=== PATIENT | male | born 1975 | race Caucasian/White ===

== ENCOUNTER 2016-12-01 09:10 | Emergency (ER) | payer OTHER ==
[~2016-12-01] VITALS: Wt 71.0 kg
[2016-12-01] MEDS ORDERED: LABETALOL HCL 20MG INJ IV ONE ×2 (10:00→11:30)
[2016-12-01 10:11] LABS: ADD SCAN DIFF NO
[2016-12-01 10:19] LABS: BASOPHIL # 0.1 10^3/ul (0.0-0.1); BASOPHILS % 0.5 % (0.0-2.0); EOSINOPHILS # 0.3 10^3/ul (0.0-0.5); EOSINOPHILS % 2.7 % (0.0-7.0); HEMATOCRIT 46.3 % (42.0-52.0); HEMOGLOBIN 15.7 g/dl (14.0-18.0); LYMPHOCYTES # 3.9 10^3/ul (0.8-2.9); LYMPHOCYTES % 37.1 % (15.0-51.0); MEAN CORPUSCULAR HEMOGLOBIN 27.6 pg (29.0-33.0); MEAN CORPUSCULAR HGB CONC 33.9 g/dl (32.0-37.0); MEAN CORPUSCULAR VOLUME 81.4 fl (82.0-101.0); MEAN PLATELET VOLUME 11.9 fl (7.4-10.4); MONOCYTE # 0.6 10^3/ul (0.3-0.9); MONOCYTES % 5.5 % (0.0-11.0); NEUTROPHIL # 5.7 10^3/ul (1.6-7.5); NEUTROPHILS % 53.8 % (39.0-77.0); PLATELET COUNT 328 10^3/UL (140-415); RED BLOOD COUNT 5.69 10^6/ul (4.70-6.10); RED CELL DISTRIBUTION WIDTH 13.4 % (11.5-14.5); WHITE BLOOD COUNT 10.6 10^3/ul (4.8-10.8)
[2016-12-01 10:22] VITALS: PULSE 72; RESP 24
[2016-12-01 10:25] LABS: CHLORIDE 105 mmol/L (97-110)
--- NOTE | 2016-12-01 10:25 | RADRPT ---
PROCEDURE: CT Brain without contrast. CLINICAL INDICATION: Visual disturbance, headache TECHNIQUE: Routine CT scan of the brain was performed on a high resolution multi detector scanner without intravenous contrast. One or more of the following dose reduction techniques were used: Auto mated exposure control; Adjustment of the mA and/or kV according to patient size; Use of iterative r econstruction technique. CTDI = 43 mGy. DLP = 630 mGy-cm. COMPARISON: No prior relevant examinations are available for comparison. FINDINGS: Hemorrhage: No evidence of intracranial hemorrhage. Acute ischemic changes: No evidence of acute ischemic changes. Mass effect/Midline shift: None. Parenchymal volume: Within normal limits for age. Ventricular system: Concordant with parenchymal volume. Chronic changes: Parenchymal attenuation is within normal limits. Extracranial soft tissues: 7 mm of soft tissue swelling noted in the left parietal region Calvarium: No fractures. Paranasal sinuses: Visualized paranasal sinuses are clear. Mastoid air cells: Visualized mastoid air cells are clear. IMPRESSION: No acute intracranial abnormalities. Normal appearance the brain parenchyma. MRI of the brain may be useful for further evaluation. 7 mm area of soft tissue swelling left parietal region without underlying fracture may be post-traum atic. RPTAT: AADD .Ernesto Dickson MD, MD Date Time Electronically viewed and signed by .Ernesto Dickson MD, on 12/01/2016 10:24 .B/
[2016-12-01 10:26] LABS: POTASSIUM 3.1 mmol/L (3.5-5.1); SODIUM 140 mmol/L (135-144)
[2016-12-01 10:28] LABS: CREATININE 1.58 mg/dl (0.61-1.24)
[2016-12-01 10:29] LABS: ANION GAP 11 (8-16); BLOOD UREA NITROGEN 26 mg/dl (7-20); CALCIUM 8.7 mg/dl (8.4-10.2); CARBON DIOXIDE 27 mmol/L (21-31); GLUCOSE 251 mg/dl (70-220)
[2016-12-01] MEDS ORDERED: POTASSIUM CHLORIDE (SR) 20 MEQ TAB PO STA (10:38)
[2016-12-01 10:44] LABS: TROPONIN-I < 0.012 ng/ml (0.00-0.12)
[2016-12-01 11:06] LABS: ADD UMIC YES; URINE BILIRUBIN (Dip) NEGATIVE (NEGATIVE); URINE BLOOD (Dip) 3+ (NEGATIVE); URINE COLOR LT. YELLOW (YELLOW); URINE KETONES (Dip) NEGATIVE (NEGATIVE); URINE LEUKOCYTE ESTERASE (Dip) NEGATIVE (NEGATIVE); URINE NITRITE (Dip) NEGATIVE (NEGATIVE); URINE TOTAL PROTEIN (Dip) 4+ (NEGATIVE); URINE UROBILINOGEN (Dip) 0.2 E.U./dL (0.1-1.0)
[2016-12-01] MEDS ORDERED: HYD25 PO (11:13)
--- NOTE | 2016-12-01 11:16 | ERD ---
ER Documentation Chief Complaint Date/Time DATE: 12/01/16 TIME: 11:16 Chief Complaint BLURRY VISION NOT TAKING MEDS HPI Patient is a 41-year-old male with diabetes and hypertension who presents with blurry vision. The patient had blurry vision which started last night. It comes and goes. The left was worse than the right. He has had a headache for the past 2 days as well. He had 2 weeks of bilateral lower extremity swelling. The patient says "otherwise I feel good". The patient has no primary doctor currently. He is supposed to be taking blood pressure medicines but does not take any at this time. ROS All systems reviewed and are negative except as per history of present illness. Medications Home Meds Active Scripts Hydrochlorothiazide* (Hydrochlorothiazide*) 25 Mg Tab, 25 MG PO DAILY, #30 TAB Prov:ALLYSON SHEA MD 12/01/16 Allergies Allergies: Coded Allergies: No Known Allergy (Unverified , 12/01/16) PMhx/Soc History of Surgery: Yes Hx Cardiac Disorders: Yes (HTN) Hx Psychiatric Problems: No Hx Miscellaneous Medical Probl: Yes (DM) Hx Alcohol Use: Yes (beer onace a week) Hx Substance Use: No Hx Tobacco Use: No Smoking Status: Never smoker FmHx Family History: diabetes Physical Exam Vitals Vital Signs Date Time Temp Pulse Resp B/P Pulse Ox O2 Delivery O2 Flow Rate FiO2 12/01/16 11:48 190/104 12/01/16 10:22 72 24 242/125 98 Room Air 12/01/16 10:00 73 16 210/114 94 Room Air 12/01/16 09:13 98.0 71 18 243/136 99 Physical Exam Const: No acute distress Head: Atraumatic Eyes: Normal Conjunctiva ENT: Normal External Ears, Nose and Mouth. Neck: Full range of motion..~ No meningismus. Resp: Clear to auscultation bilaterally Cardio: Regular rate and rhythm, no murmurs Abd: Soft, non tender, non distended. 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, no slurred speech Psych: Normal Mood and Affect Result Diagram: 12/01/16 1000 12/01/16 1000 Results 24 hrs Laboratory Tests Test 12/01/16 09:46 12/01/16 10:00 12/01/16 10:30 Bedside Glucose 144mg/dL White Blood Count 10.610^3/ul Red Blood Count 5.6910^6/ul Hemoglobin 15.7g/dl Hematocrit 46.3% Mean Corpuscular Volume 81.4fl Mean Corpuscular Hemoglobin 27.6pg Mean Corpuscular Hemoglobin Concent 33.9g/dl Red Cell Distribution Width 13.4% Platelet Count 96667^3/UL Mean Platelet Volume 11.9fl Neutrophils % 53.8% Lymphocytes % 37.1% Monocytes % 5.5% Eosinophils % 2.7% Basophils % 0.5% Nucleated Red Blood Cells % 0.0/100WBC Neutrophils # 5.710^3/ul Lymphocytes # 3.910^3/ul Monocytes # 0.610^3/ul Eosinophils # 0.310^3/ul Basophils # 0.110^3/ul Nucleated Red Blood Cells # 0.010^3/ul Sodium Level 140mmol/L Potassium Level 3.1mmol/L Chloride Level 105mmol/L Carbon Dioxide Level 27mmol/L Anion Gap 11 Blood Urea Nitrogen 26mg/dl Creatinine 1.58mg/dl Glucose Level 251mg/dl Calcium Level 8.7mg/dl Troponin I < 0.012ng/ml Urine Color LT. YELLOW Urine Clarity HAZY Urine pH 6.5 Urine Specific [place] 1.015 Urine Ketones NEGATIVE Urine Nitrite NEGATIVE Urine Bilirubin NEGATIVE Urine Urobilinogen 0.2 E.U./dL Urine Leukocyte Esterase NEGATIVE Urine Microscopic RBC 10-25/HPF Urine Microscopic WBC 0-2/HPF Urine Hyaline Casts RARE Urine Hemoglobin 3+ Urine Glucose 0.5%% Urine Total Protein 4+ Current Medications Medications (Trade) Dose Ordered Sig/Rose Route PRN Reason Start Time Stop Time Status Last Admin Dose Admin Labetalol HCl (Labetalol) 20 mg ONCE ONCE IV 12/01/16 10:00 12/01/16 10:01 DC 12/01/16 10:20 Potassium Chloride (Klor-Con 20) 40 meq ONCE STAT PO 12/01/16 10:38 12/01/16 10:39 DC 12/01/16 11:03 Labetalol HCl (Labetalol) 20 mg ONCE ONCE IV 12/01/16 11:30 12/01/16 11:31 DC 12/01/16 11:19 Procedures/MDM EKG read by me: Rate/Rhythm: Regular rate and rhythm at a rate of 69 Intervals: Normal Impression: Flipped T waves but no ST elevations or depressions CT brain negative per radiology. Patient is a 41-year-old male presents with what appears to be acute hypertension. The patient has mild creatinine elevation of 1.58. He has hyperglycemia without signs of diabetic ketoacidosis. He had mild hypokalemia with potassium of 3.1 and he was given potassium by mouth. The patient was given labetalol 20 mg IV 2 which did improve his blood pressure. At this point I doubt stroke, glaucoma, diabetic ketoacidosis, or any other etiology that would require admission to the hospital at this time. I believe the patient has hypertensive urgency without emergency. The patient will be given a prescription for hydrochlorothiazide but will need to follow-up closely with the local clinics within 24-48 hours for repeat blood pressure check and further workup. The patient can return for any worsening symptoms. I do not believe the patient requires inpatient admission at this time. Critical Care: Time: 35 minutes excluding all billable procedures. Treatments/Evaluations: Close monitoring and treatment of unstable vital signs, cardiorespiratory, and neurologic status, while maintaining tight balance of fluid, respiratory, and cardiac interventions. Departure Diagnosis: Primary Impression: Blurry vision Additional Impression: Hypertensive urgency Condition: Fair Patient Instructions: High Blood Pressure (Hypertension), Blurred Vision Ref[facility] Usted se mendieta hecho un examen mdico de control que le indica que no est en nghia condicin que requiera tratamiento urgente en el Departamento de Emergencia. Un estudio ms profundo y el tratamiento de kruse condicin pueden esperar sin ningn riesgo hasta que usted sea atendida/o en el consultorio de kruse mdico o nghia cl donnell. Es responsabilidad suya arreglar nghia kirk para el seguimiento del tarun. MANEJO DE CONDICIONES NO URGENTES EN EL FUTURO 1) Si usted tiene un mdico de atencin primaria: Usted debera llamar a kruse mdico de atencin primaria antes de venir al departamento de emergencia. Despus de las horas de consultorio, kruse doctor o kruse asociado/a est disponible por telfono. El mdico o enfermero de ileana en el servicio telefnico puede asesorarle por tai medio para atender el problema, o tarun contrario se puede programar nghia kirk. 2) Si usted no tiene un mdico de atencin primaria: Llame al mdico o clnica de referencia que aparece abajo roxanna las horas de consultorio para hacer nghia kirk para que le vean. CLINICAS: [place] [address] [phone] [facility] [phone] [facility] [phone] [address] [place] [address] [phone] [facility] [place] [id number] [phone] [facility] [phone] [address] Additional Instructions: Llame al doctor MAANA y jm nghia KIRK PARA DENTRO DE 1-2 [place].Dgale a la secretaria que nosotros le instruimos hacer esta kirk.Avise o llame si kruse condicin se empeora antes de la kirk. Regresa aqui si peor o no mejor. ALLYSON SHEA MD Dec 01, 2016 11:16
[2016-12-01 11:48] VITALS: BP 190/104
== END 2016-12-01 12:02 | disposition home or self-care (01) ==
LOC: E/R 09:10
DX: H53.8 Other visual disturbances (principal); I16.0 Hypertensive urgency; I10 Essential (primary) hypertension; E11.9 Type 2 diabetes mellitus without complications; R51 Headache
CPT/HCPCS: 70450; 80048; 81001; 81003; 82962; 84484; 85025; Z7610; 36415; 93005; 96374; 96376